=== PATIENT | female | born 1980 | race Two or more races ===

== ENCOUNTER 2017-11-20 14:12 | Emergency (ER) | payer OTHER, MEDICAID ==
[~2017-11-20] VITALS: Ht 167.6 cm; Wt 52.2 kg
[~2017-11-20 14:12] MED LIST: RISP1TAB36; [UNRECOGNIZED DRUG - REMARK]
[2017-11-20 15:59] VITALS: BP 120/76
== END 2017-11-20 18:05 | disposition home or self-care (01) ==
LOC: ER 14:12
DX: S29.011A Strain of muscle and tendon of front wall of thorax, initial encounter (principal); W19.XXXA Unspecified fall, initial encounter; Y93.89 Activity, other specified; Y99.8 Other external cause status; Y92.89 Other specified places as the place of occurrence of the external cause
CPT/HCPCS: 71045

== ENCOUNTER 2021-11-08 14:10 | Emergency (ER) | payer OTHER, MEDICAID ==
[~2021-11-08] VITALS: Ht 162.6 cm; Wt 54.4 kg
[2021-11-08] MEDS ORDERED: diphenhdrAMINE HCL 50 MG/1 ML VL ONE (14:32)
[2021-11-08] MEDS ORDERED: LORazepam 2MG/ML-1ML VIAL ONE (14:33)
[2021-11-08] MEDS ORDERED: HALOPERIDOL LACTATE 5 MG/ML INJ VIAL ONE (14:33)
[2021-11-08] MEDS ORDERED: diphenhdrAMINE HCL 50 MG/1 ML VL IM ONE (15:00)
[2021-11-08] MEDS ORDERED: LORazepam 2MG/ML-1ML VIAL IV ONE (15:00)
[2021-11-08] MEDS ORDERED: HALOPERIDOL LACTATE 5 MG/ML INJ VIAL IM ONE (15:00)
[2021-11-08] MEDS ORDERED: SODIUM CHLORIDE 0.9% 1,000 ML IVB ONE (17:30)
[2021-11-08 18:39] LABS: Basophils # (auto) 0.1 10 ^3/uL (0-0.2); Eosinophils # (auto) 0.2 10 ^3/uL (0-0.8); Monocytes # (auto) 1.1 10 ^3/uL (0-1.3)
[2021-11-08 18:41] LABS: Basophils % (auto) 0.8 % (0.0-2.0); Eosinophils % (auto) 1.7 % (0.0-7.0); Hematocrit 32.4 % (36.0-46.0); Hemoglobin 10.7 g/dL (12.2-16.2); Lymphocytes # (auto) 2.5 10 ^3/uL (0.4-5.4); Lymphocytes % (auto) 23.7 % (10.0-50.0); Mean Corpuscular Hemoglobin 26.6 pg (28.0-32.0); Mean Corpuscular Hgb Conc. 33.1 g/dL (32.0-36.0); Mean Corpuscular Volume 80.4 fL (80.0-100.0); Monocytes % (auto) 10.8 % (0.0-12.0); Neutrophils # (auto) 6.5 10 ^3/uL (1.6-8.6); Nucleated Red Blood Cells % 0.1 %; Red Blood Cells 4.03 10^6/uL (4.0-5.20); Red Cell Distribution Width 16.5 % (11.8-14.3); White Blood Cell 10.4 10^3/uL (4.4-10.8)
[2021-11-08 18:46] LABS: Albumin 3.7 g/dL (3.4-5.0); BUN/Creatinine Ratio 21.7; Calcium 8.6 mg/dL (8.5-10.1); Magnesium 2.4 mg/dL (1.6-2.6); Potassium 3.6 mmol/L (3.5-5.1)
[2021-11-08 18:49] LABS: Bilirubin, Total 0.5 mg/dL (0.2-1.0); Total Protein 7.2 g/dL (6.4-8.2)
[2021-11-08 19:36] LABS: Salicylate < 1.7 mg/dL (2.8-20.0)
[2021-11-08 19:37] LABS: Acetaminophen < 2.0 ug/mL (10-30)
[2021-11-09 19:14] LABS: Urine Bacteria NONE SEEN /hpf (None Seen); Urine Blood Negative /uL (Negative); Urine Hyaline Cast FEW /lpf (0 - 2); Urine Mucus FEW (None Seen); Urine Specific Gravity 1.031 (1.001-1.035); Urine WBC 10 /hpf (0 - 5)
[2021-11-09 19:28] LABS: Alcohol, Urine < 3.0 mg/dL (0-10); Amphetamine Screen, Urine POSITIVE (NEGATIVE); Barbiturate Scree,Urine NEGATIVE (NEGATIVE); Benzodiazephine Screen, Urine NEGATIVE (NEGATIVE); Cocaine Screen, Urine NEGATIVE (NEGATIVE); Opiate Scree,Urine NEGATIVE (NEGATIVE); Phencyclidine Screen, Urine NEGATIVE (NEGATIVE)
[2021-11-09 19:36] LABS: Cannabinoid Screen, Urine POSITIVE (NEGATIVE)
[2021-11-09 23:00] VITALS: BP 113/69
== END 2021-11-10 00:10 | disposition home or self-care (01) ==
LOC: ER 14:10 → EDBD 14:10 → EDUNIT# 14:10 → ER 11-10 00:10
DX: R41.82 Altered mental status, unspecified (principal); F19.159 Other psychoactive substance abuse with psychoactive substance-induced psychotic disorder, unspecified; R94.31 Abnormal electrocardiogram [ECG] [EKG]
CPT/HCPCS: 36415; 71045; 80053; 80307; 80320; 80329; 81001; 81025; 83735; 84443; 85025; 93005; 96372; 96374; 99285; J1200; J1630; J2060

== ENCOUNTER 2023-10-13 04:14 | Emergency (ER) | payer SELFPAY ==
[~2023-10-13] VITALS: Ht 165.1 cm; Wt 60.0 kg
[2023-10-13 04:38] VITALS: BP 113/76; PULSE 98; RESP 16; O2SAT 100
== END 2023-10-13 09:49 | disposition left against medical advice (07) ==
LOC: EDBD 04:14 → ER 04:14
DX: M79.10 Myalgia, unspecified site (principal); Z53.21 Procedure and treatment not carried out due to patient leaving prior to being seen by health care provider

== ENCOUNTER 2024-02-03 07:17 | Emergency (ER) | payer MEDICAID ==
[~2024-02-03] VITALS: Ht 165.1 cm; Wt 55.8 kg
[2024-02-03 08:01] VITALS: BP 128/50; PULSE 92; RESP 18; TEMP 98.3; O2SAT 100
[2024-02-03 08:37] LABS: Urine Bacteria FEW /hpf (None Seen); Urine Blood Negative /uL (Negative); Urine Clarity Clear (Clear); Urine Color Yellow (Yellow); Urine Mucus FEW (None Seen); Urine Protein, UAD TRACE (Negative); Urine Specific Gravity 1.027 (1.001-1.035); Urine Urobilinogen Normal (Negative); Urine WBC 3 /hpf (0 - 5); Urine pH 5.5 (5.0-9.0)
[2024-02-03] MEDS ORDERED: ACET-1882 PO (09:03)
== END 2024-02-03 09:06 | disposition home or self-care (01) ==
LOC: ER 07:17
DX: G44.209 Tension-type headache, unspecified, not intractable (principal)
CPT/HCPCS: 81001; 81025